=== PATIENT | female | born 1930 | race Caucasian/White ===

== ENCOUNTER → 2017-11-19 | Outpatient (CLI) | payer MEDICARE, MEDICAID ==
[~2017-11-19] MED LIST: ACE325 PO; ALBU8.5H IH; ALE70 PO; AZE137NAPT NS; BAC PO; BACI1POW4 TOP; BENZ200C15 PO; CALC-762 PO; CALC1TAB24 PO; CETY454C2 TOP; CLAR-1 PO; CYAN1000 IJ; ERGO500025 PO; ESCI20TA38 PO; ESCI20TA8 PO; EZE10 PO; FAM20 PO; FEXO180T74 PO; FOL1 PO; FOLI-68 PO; FUR20 PO; GUAI-244 PO; HYDR25SU35 RC; HYDR25SU51 RC; HYDR28OI11 TOP; IPRA15SP7 NS; LEVO112T43 PO; LIS10 PO; LOPE-84 PO; LOR5/325 PO; LORA10TA2 PO; LUTE6CAP11 PO; MENT118G TOP; METH-374 PO; MICO14CR7 TOP; MONT10TA4 PO; MULT-775 PO; NITR1PAT58 TD; OMEP-153 PO; PHEN97.29 PO; PHENA200 PO; SIMV-44 PO; SIMV-54 PO; SODI104S3 NS; SYSTANEPT OP; TALC71PO2 TOP; TRIA10PO9 TOP; VALS1TAB67 PO; [UNRECOGNIZED DRUG - CODE] PO; [UNRECOGNIZED DRUG - CODE] TOP; [UNRECOGNIZED DRUG - CODE] TP; areds PO
== END ==
LOC: LAB 09:22
PROVIDERS: ATTEND Internal Medicine
DX: E78.00 Pure hypercholesterolemia, unspecified (principal)
CPT/HCPCS: 36415; 82040; 82247; 82310; 82374; 82435; 82465; 82565; 82947; 83718; 84075; 84132; 84155; 84295; 84450; 84460; 84478; 84520

== ENCOUNTER → 2018-02-24 | Outpatient (CLI) | payer MEDICARE, MEDICAID ==
--- NOTE | 2018-02-24 14:08 | RADIOLOGY IMAGING REPORT ---
FACILITY: [facility] PATIENT NAME: Ankita Schroeder : 1930 MR: [id number] V: [id number] EXAM DATE: ORDERING PHYSICIAN: TEO ARGUELLO TECHNOLOGIST: [place] [facility] [place]: Ankita Schroeder : 1930 Visit/Account:[id number] Date of Sevice: 02/24/2018 ADDENDUM #1 There is a voice recognition error under the impression section should read mild tricompartmental deg enerative changes the left knee. Report Dictated By: Eveline Tay MD at 02/25/2018 9:46 AM Report E-Signed By: Eveline Tay MD at 02/25/2018 9:47 AM ORIGINAL REPORT Exam type: KNEE 4 VIEW LEFT History: Pain back of left knee x3 weeks Comparison: None. Findings: There is mild narrowing of the medial lateral and patellofemoral compartments of the left knee. Ther e is no evidence of acute fracture or dislocation. No lytic or blastic bone lesions are seen. IMPRESSION: 1. 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
== END ==
LOC: RAD 13:22
PROVIDERS: ATTEND Nurse Practitioner Family
DX: M17.12 Unilateral primary osteoarthritis, left knee (principal)
CPT/HCPCS: 73564

== ENCOUNTER → 2018-06-01 | Outpatient (CLI) | payer MEDICARE, MEDICAID | LOC: LAB 13:29 | PROVIDERS: ATTEND Internal Medicine | DX: I35.1 Nonrheumatic aortic (valve) insufficiency (principal); E78.00 Pure hypercholesterolemia, unspecified | CPT/HCPCS: 36415; 82040; 82247; 82310; 82374; 82435; 82465; 82565; 82947; 83718; 84075; 84132; 84155; 84295; 84450; 84460; 84478; 84520 ==

== ENCOUNTER → 2018-08-06 | Outpatient (CLI) | payer MEDICARE, MEDICAID ==
--- NOTE | 2018-08-06 10:17 | RADIOLOGY IMAGING REPORT ---
FACILITY: [facility] PATIENT NAME: Ankita Schroeder : 1930 MR: [id number] V: [id number] EXAM DATE: ORDERING PHYSICIAN: TANJA ELIZALDE TECHNOLOGIST: Location: [facility] - [place] Patient: Ankita Schroeder : 1930 Visit/Account:[id number] Date of Sevice: 08/06/2018 DEXA Scan Clinical history: Osteoporosis, pernicious anemia. Comparison: DEXA scan from 03/27/2016. LUMBAR SPINE: The bone mineral density (BMD) measured from L1-L3 correlates with a Z-score of 0.4 and a T-score of -1.8 which is osteopenia as defined by the World Health Organization. The corresponding risk of frac ture in the lumbar spine is 3-4 times increased compared with a young adult reference population. Th is value has decrease by 4.4 % since the prior study. More than 5% change is considered significant. HIP: Bone mineral density (BMD) measured in the LEFT total hip region correlates with a Z-score -0.1 and a T-score of -2.7 which is osteoporosis as defined by the World Health Organization. The correspondin g risk of fracture in the hip is 6-8 times increased compared to a young adult reference population. This value has decrease by 3.1 % since the prior study. More than 5% change is considered significan t. T score left femoral neck -2.8 Bone mineral density (BMD) measured in the Femoral Neck region measures 0.649 g/cm?. IMPRESSION: 1. Lumbar spine: Osteopenia. There has been 4.4% decrease in the bone mineral density since the pre vious exam. 2. Left Total Hip: Osteoporosis. There has been 3.1% decrease in the bone mineral density since the previous exam. 3. Femoral Neck: Bone Mineral Density is 0.649 g/cm? The next DEXA scan of this patient should include the following sites: L1-L4 and the left hip. FRAX? WHO Fracture Risk Assessment Tool link: <http://www.shef.ac.uk/FRAX/tool.jsp?locationValue=9> PLEASE NOTE: 1) The World Health Organization defines low BMD as follows: T-score Normal > -1 Osteopenia < -1 and > -2.5 Osteoporosis < -2.5 without fractures Established osteoporosis < -2.5 with fractures 2) In general, you may wish to consider: Diagnosis Treatment Follow-up DEXA Normal BMD Prevention 2-3 years Osteopenia Prevention/therapy 1-2 years Osteoporosis Therapy Yearly 3) Fracture risk estimated from the T-score is more accurate for vertebral fractures (often spontane ous) than for hip fractures. Report Dictated By: Eveline Tay MD at 08/06/2018 10:07 AM Report E-Signed By: Eveline Tay MD at 08/06/2018 10:13 AM MARIA GUADALUPEN:LUCAS
== END ==
LOC: RAD 03:21
PROVIDERS: ATTEND Nurse Practitioner Family
DX: M81.0 Age-related osteoporosis without current pathological fracture (principal); M85.80 Other specified disorders of bone density and structure, unspecified site; D51.0 Vitamin B12 deficiency anemia due to intrinsic factor deficiency; E55.9 Vitamin D deficiency, unspecified
CPT/HCPCS: 77080

== ENCOUNTER → 2018-09-16 | Outpatient (CLI) | payer MEDICARE, MEDICAID ==
[~2018-09-16] MED LIST changes: +DENOSUMAB 60 MG/1 ML SYR SUBQ ONE
[2018-09-16 13:24] VITALS: BP 150/71
== END ==
LOC: SPU 08:34
PROVIDERS: ATTEND Nurse Practitioner Family
DX: M81.0 Age-related osteoporosis without current pathological fracture (principal)
CPT/HCPCS: 96372; J0897

== ENCOUNTER → 2019-03-18 | Outpatient (CLI) | payer MEDICARE, MEDICAID ==
[2018-09-16 13:24] VITALS: BP 150/71
== END ==
LOC: SPU 08:36
PROVIDERS: ATTEND Nurse Practitioner Family
DX: M81.0 Age-related osteoporosis without current pathological fracture (principal)
CPT/HCPCS: 96372; J0897

== ENCOUNTER 2019-04-29 00:34 | Day surgery (SDC) | payer MEDICARE, MEDICAID ==
[~2019-04-29] VITALS: Ht 165.1 cm; Wt 50.3 kg
[~2019-04-29 00:34] MED LIST changes: +ACET-2146 PO; +ALB18R INH; +ATOR40TA69 PO; +CHOL500045 PO; -DENOSUMAB 60 MG/1 ML SYR SUBQ ONE; +EYEL1MED TP; +FERR-53 PO; +LEVO88TA45 PO; +LOSA-54 PO; +OXYGENHOME INH; +[UNRECOGNIZED DRUG - CODE] PO
[2019-04-29] MEDS ORDERED: PROPOFOL EMUL(*) 10MG/ML 20 ML 20 ML ONE (07:08)
[2019-04-29 07:19] VITALS: BP 176/87
[2019-04-29] MEDS ORDERED: NORMOSOL R SOLN(*) 1000 ML BAG 1,000 ML IV PRN (07:55)
[2019-04-29] MEDS ORDERED: LIDOCAINE/SOD BICARB 8.4% SYR ID ONE (07:55)
[2019-04-29 09:31] VITALS: BP 145/86
--- NOTE | 2019-04-29 09:50 | Short(Outpt) Discharge Summary ---
Discharge Summary Reason for Hosp/Final Diag: (1) H/O colonoscopy with polypectomy Hospital Course & Plan: pt presented for colonoscopy. a mass was found and biopsied. i will discuss further treatment with her guardian. she will be discharged when criteria met. Departure Discharge to: Other Facility Discharge Instructions Home Meds Active Scripts Ipratropium [place] 0.06% Ns (IPRATROPIUM BROMIDE 0.06% NS) 15 Ml [place], 2 SPR NS BID for 30 Days, #1 BOT 11 Refills Prov:MINDA RIVERA JR, MD 11/24/18 Reported Medications Albuterol Sulfate (VENTOLIN HFA) 18 Gm Inh, 1-2 PUFF INH 3-4XD, INH 04/25/19 Guaifenesin (ROBAFEN) 100 Mg/5 Ml Liquid, 400 MG PO Q4-6H PRN for CONGESTION 04/25/19 Oxygen (OXYGEN) [place], 2 L INH HS, L 04/25/19 Eyelid Cleanser Combination #5 (OCUSOFT LID SCRUB) 1 Each Med..pad, 1 EACH TP QDAY 04/25/19 Losartan/Hydrochlorothiazide (LOSARTAN-HCTZ 100-25 MG TAB) 1 Each Tablet, 1 EACH PO QDAY 04/25/19 Ferrous Sulfate (FERROUS SULFATE) 325 Mg Tablet, 325 MG PO QDAY 04/25/19 Menthol (BIOFREEZE) 118 Ml Gel..ml., 1 DONAVON TOP PRN PRN for PAIN 04/25/19 Atorvastatin Calcium (ATORVASTATIN CALCIUM) 40 Mg Tablet, 1 TAB PO QDAY, TAB 04/25/19 Acetaminophen 500 Mg Tab (ACETAMINOPHEN EXTRA STRENGTH) 500 Mg Tablet, 1000 MG PO BID, TAB 04/25/19 Cholecalciferol (Vitamin D3) (VITAMIN D) 5,000 Unit Tablet, 5000 UNIT PO QDAY 04/25/19 Levothyroxine Sodium (LEVOTHYROXINE SODIUM) 88 Mcg Tablet, 88 MCG PO QDAY 04/25/19 Calcium Carbonate/Vitamin D3 (Calcium 600 + Vit D3 400 Tab) 600 Mg-400 Tablet, 1 TAB PO QDAY 04/25/19 Talc/Cellulos/Chloroxy/Aldioxa (ZEASORB POWDER) 71 Gm Powder, 1 DONAVON TOP QDAY 03/21/14 Hydrocortisone Valerate (WESTCORT) 15 Gm Oint...g., 1 DONAVON TOP PRN PRN for linda 03/21/14 Triamcinolone (TRIAMCINOLONE) 10 Gm Powder, 1 DONAVON TOP PRN PRN for RASH 03/21/14 Albuterol Sulfate 90 Mcg/Act (PROAIR HFA 90 MCG/ACT) 8.5 Gm Hfa.aer.ad, 1-2 PUFF IH BID 03/21/14 Sodium Chloride (OCEAN) 45 Ml [place], 1 SPRAY NS PRN, SPRAY 03/21/14 Miconazole Nitrate (ANTIFUNGAL CREAM) 14 Gm Cream..g., 1 DONAVON TOP PRN PRN for fungal infection 03/21/14 Lactase (LACTOSE FAST ACTING) 9,000 Unit Tab.chew, 3000 MG PO TID, TAB.CHEW 03/21/14 Hydrocortisone Acetate (HYDROCORTISONE) 28 Gm Oint...g., 1 DONAVON TOP PRN PRN for ITCHING 03/21/14 Methylcellulose (FIBER LAXATIVE) 500 Mg Tablet, 500 MG PO QDAY 03/21/14 Escitalopram Oxalate (ESCITALOPRAM OXALATE) 20 Mg Tablet, 20 MG PO QDAY 03/21/14 Skin Cleanser (CETAPHIL) 237 Ml Cleanser, 237 ML TP DAILY 03/21/14 Bacitracin, Micronized (BACITRACIN) 1 Gm Powder, 1 GM TOP PRN PRN for INFECTION 03/21/14 Hydrocortisone Acetate (ANUCORT-HC) 25 Mg Supp.rect, 25 MG RC PRN PRN for HEMORRHOIDS, SUPP.RECT 03/21/14 Loperamide Hcl (ANTI-DIARRHEAL) 2 Mg Capsule, 2 MG PO PRN PRN for DIARRHEA, CAPSULE 03/21/14 Calcium Carbonate/Mag Hydrox (ANTACID CHEWABLE TABLET) 1 Each Tab.chew, 1000 MG PO PRN PRN for INDIGESTION, TAB.CHEW 03/21/14 Phenobarbital (Phenobarbital) 97.2 Mg Tablet, 97.2 MG PO DAILY, 0 Refills 12/08/08 Nitroglycerin (Nitro-Dur 0.4 Mg) 1 Patch .24 H Patch.td24, 1 PATCH TD DAILY, 0 Refills 12/08/08 Omeprazole (Omeprazole) 20 Mg Tablet.dr, 20 MG PO DAILY, 0 Refills 12/08/08 Multivitamins W-Minerals (Icaps Plus) 1 Tab Tablet, 1 TAB PO DAILY, 0 Refills 12/08/08 Folic Acid (Folic Acid) 1 Mg Tab, 1 MG PO QDAY, 0 Refills 12/08/08 Discontinued Reported Medications Simvastatin (SIMVASTATIN) 40 Mg Tablet, 40 MG PO HS, TAB 03/21/14 Guaifenesin (ROBAFEN) 100 Mg/5 Ml Liquid, 100 MG PO PRN PRN for CONGESTION 03/21/14 [areds] No Conflict Check, 1 CAP PO BID 03/21/14 Montelukast Sodium (MONTELUKAST SODIUM) 10 Mg Tablet, 1 TAB PO QDAY TAKE ONE TABLET BY MOUTH AT LEAST TWO HOURS PIOR TO EXERCISE 03/21/14 Folic Acid (FOLIC ACID) 1 Mg Tablet, 1 MG PO QDAY 03/21/14 Valsartan/Hydrochlorothiazide (DIOVAN HCT 160-12.5 MG TAB) 1 Each Tablet, 1 EACH PO QDAY 03/21/14 Clarithromycin (CLARITHROMYCIN) 500 Mg Tablet, 500 MG PO BID, #14 TAB TAKE 1 TABLET BY MOUTH TWICE A DAY 03/21/14 Cetyl Alc/Stearyl Alc/Pg/Sls (CETAPHIL CREAM) 454 Gm Cream..g., 1 DONAVON TOP QDAY 03/21/14 Menthol (BIOFREEZE) 118 Ml Gel..ml., 1 DONAVON TOP PRN PRN for muscle pain 03/21/14 Benzonatate (BENZONATATE) 200 Mg Capsule, 200 MG PO PRN for COUGH, #15 CAP TAKE 1 CAPSULE BY MOUTH THREE TIMES A DAY 03/21/14 Hydrocortisone Acetate (ANUSOL-HC) 25 Mg Supp.rect, 25 MG RC PRN for HEMORRHOIDS, SUPP.RECT 03/21/14 Acetaminophen (Tylenol) 325 Mg Tab, 650 MG PO PRN, 0 Refills 12/08/08 Simvastatin (Zocor) 40 Mg Tablet, 40 MG PO QHS, 0 Refills 12/08/08 Cyanocobalamin (Cyanocobalamin) 1,000 Mcg/Ml Vial, 1000 MCG IJ MONTHLY, 0 Ref ills 12/08/08 Ergocalciferol (Vitamin D) 50,000 Unit Capsule, 21705 UNIT PO MONTHLY, 0 Refills 12/08/08 Levothyroxine Sodium (Levothyroxine Sodium) 112 Mcg Tablet, 100 MCG PO DAILY, 0 Refills 12/08/08 Furosemide (Lasix) 20 Mg Tab, 20 MG PO DAILY, 0 Refills 12/08/08 Calcium Carbonate/Vitamin D3 (Calcium 500 + D Tablet) 1 Tab Tablet, 1 TAB PO DAILY, 0 Refills 12/08/08 Diet: Regular Activity: As Tolerated Special Instructions: biopsy results pending PETER LUONG Apr 29, 2019 09:50
[2019-04-29 09:55] VITALS: BP 160/98
[2019-04-29 10:00] VITALS: BP 148/92
== END 2019-04-29 10:15 | disposition home or self-care (01) ==
LOC: OR 00:34
PROVIDERS: ATTEND Surgery
DX: Z12.11 Encounter for screening for malignant neoplasm of colon (principal); D12.5 Benign neoplasm of sigmoid colon
CPT/HCPCS: 00811; 45380; 88305; J2704

== ENCOUNTER → 2019-05-17 | Outpatient (CLI) | payer MEDICARE, MEDICAID ==
[~2019-05-17] MED LIST changes: +IOPAMIDOL 76% 100 ML INFUS BTL 100 ML ONE
[2019-05-17 08:48] LABS: PLATELET COUNT, AUTOMATED 179 K/uL (150-450)
--- NOTE | 2019-05-17 12:21 | RADIOLOGY IMAGING REPORT ---
FACILITY: [facility] - [place] PATIENT NAME: Ankita Schroeder : 1930 MR: [id number] V: [id number] EXAM DATE: ORDERING PHYSICIAN: PETER LUONG TECHNOLOGIST: Location: [facility] - [place] Patient: Ankita Schroeder : 1930 Visit/Account:[id number] Date of Sevice: 05/17/2019 CT CHEST ABDOMEN PELVIS W/CON HISTORY: colon cancer ADDITIONAL HISTORY: None. TECHNIQUE: Following administration of IV contrast axial images acquired through the chest abdomen a nd pelvis during the portal venous phase. Coronal and sagittal reformatting was also performed.Dose Lowering Technique One of the following dose optimization techniques was utilized in the performance of this exam: Autom ated exposure control; adjustment of the mA and/or kV according to the patient's size; or use of an i terative reconstruction technique. Specific details can be referenced in the facility's radiology C T exam operational policy. CONTRAST: 75 mL Isovue-370 COMPARISON: None. FINDINGS: CHEST: Lungs/Pleura: There small scattered calcified angiomas in both lungs There is a 4 mm noncalcified nodule in the anterolateral right upper lobe best appreciated on image 1 29 of series 4 There is a 7 x 3 mm noncalcified nodule anterior aspect the right middle lobe best appreciated on shaw ge 160 There is a 3 mm noncalcified nodule lateral inferior right middle lobe best appreciated on image 174. There is a 3 mm noncalcified nodule anterior aspect left upper lobe best appreciated on image 83 Linear stranding in the lung bases may represent scarring versus atelectasis Mediastinum/lymph nodes: Negative. Heart/vessels: There are at least moderate coronary artery calcifications. The ascending thoracic aorta is mildly dilated at 4.05 cm Bones/soft tissues: There is a dextroconvex scoliosis of the thoracic spine. There are mild brayden haroon fractures of T3, four and five ABDOMEN AND PELVIS: Hepatobiliary: There is cholelithiasis although no evidence of biliary ductal dilatation. There is a 1 cm cyst in the lateral segment left lobe of the liver. Several additional tiny hypodensities whi ch may represent additional cysts within the liver although too small to characterize Spleen: Negative. Pancreas: The pancreatic duct in the head the pancreas is dilated up to 8 mm. Adrenals: Negative. Kidneys ureters and bladder : There multiple hypodensities in both kidneys most of which are too smal l to characterize by CT. There is a 1.3 cm hypoattenuating mass in the posterior upper pole the righ t kidney with CT Hounsfield units of 30 therefore does not represent a simple cyst although could rep resent a proteinaceous or hemorrhagic cyst. Other masses are not excluded and further evaluation wit h MR may be helpful Genitalia: Hysterectomy GI: There is diverticulosis throughout the left-sided the colon. In the distal sigmoid colon there is an area of focal wall thickening which may represent patient's reported colon cancer although cli nical correlation needed the possibility of acute diverticulitis in this location seems less likely g iven the lack of surrounding inflammatory change Vessels/spaces/nodes: . At least moderate vascular calcifications are seen throughout the abdomen a nd pelvis Bones/soft tissues: There spondylotic changes of the lumbar spine and levoconvex scoliosis Additional findings: None pertinent. IMPRESSION: There is diverticulosis throughout the left-sided the colon. There is focal narrowing in the distal sigmoid colon which may represent patient's reported colon can cer. Possibility of acute diverticulitis in this location seems less likely given the lack of surrou nding inflammatory change. There are multiple hypodensities in both kidneys some of which are too small to characterize by CT. 1.3 cm hypoattenuating mass in the upper pole the right kidney does not appear to represent simple cy st. This could represent a proteinaceous or hemorrhagic cyst although the d fferential diagnosis wou ld include other solid masses including malignancy. This could be further evaluated with MR with and without contrastThe pancreatic duct in the head is dilated up to 8 mm. This could be further evalua nadya with MRCP Cholelithiasis Mild dilatation of the ascending thoracic aorta At least moderate vascular calcifications throughout the chest abdomen and pelvis including the coron santos arteries There are calcified and noncalcified nodules in both lungs measuring up to 5 mm in average diameter. Although the noncalcified nodules could represent noncalcified granulomas possibility of primary me tastases cannot be entirely excluded. Short-term interval follow-up recommended Report Dictated By: Eveline Tay MD at 05/17/2019 11:49 AM Report E-Signed By: Eveline Tay MD at 05/17/2019 12:12 PM WSN:[id number]
== END ==
LOC: CT 00:34
PROVIDERS: ATTEND Surgery
DX: R91.8 Other nonspecific abnormal finding of lung field (principal); I25.10 Atherosclerotic heart disease of native coronary artery without angina pectoris; K80.20 Calculus of gallbladder without cholecystitis without obstruction; K57.30 Diverticulosis of large intestine without perforation or abscess without bleeding; Z90.710 Acquired absence of both cervix and uterus
CPT/HCPCS: 36415; 71260; 74177; 82378; 85025; Q9967; 82040; 82247; 82310; 82374; 82435; 82565; 82947; 84075; 84132; 84155; 84295; 84450; 84460; 84520